=== PATIENT | female | born 1965 | race Asian ===

== ENCOUNTER 2016-11-19 08:37 | Day surgery (SDC) | payer OTHER ==
[~2016-11-19] VITALS: Ht 154.9 cm; Wt 61.5 kg
[~2016-11-19 08:37] MED LIST: DXPN25C PO; FLUT16SP NS; GLUC100016 PO; MULT-1018 PO; NPR500T PO; OMEG-38 PO; Sodium Chloride LOK Flush 10 mL Syringe IV PRN; TRET15GE2 TP; fentaNYL-PF 50 mCg/mL 2 mL Inj IVPUSH PRN
[2016-11-19 09:19] VITALS: BP 135/85; PULSE 82; RESP 16; O2SAT 97
[2016-11-19] MEDS: 0.9% Sodium Chloride 1,000 ML IV PRN ×3 (09:26→09:57)
[2016-11-19 10:00] VITALS: BP 134/91; PULSE 82; RESP 12; O2SAT 96
[2016-11-19 10:10] VITALS: BP 135/73; PULSE 77; RESP 14; O2SAT 97
[2016-11-19 10:20] VITALS: BP 142/84; PULSE 82; RESP 14; O2SAT 97
[2016-11-19 10:30] VITALS: BP 142/86; PULSE 84; RESP 14; O2SAT 99
--- NOTE | 2016-11-19 10:46 | ENDO ---
[address] [address] ENDOSCOPY PROCEDURE PATIENT: LEVY PONCE : 1965 MR#: [id number] ADMIT: 11/19/2016 JOB ID: [id number] DATE: 11/19/2016 PROCEDURE: Colonoscopy. INDICATIONS: Screening. The patient's ASA classification is 1. Mallampati score was 1. MEDICATIONS: 1. Versed 3 mg. 2. Fentanyl 50 mcg. INSTRUMENT USED: PCF H 190 AL PREPARATION QUALITY: Was good. PROCEDURE DETAILS: After informed consent was obtained, the patient was brought into the GI suite, where she was placed on oxygen via nasal cannula and monitored with continuous pulse oximeter, telemetry and blood pressure monitoring. A time-out was performed. Then, she was placed in the left lateral decubitus position and medications were administered for sedation. A digital rectal examination was performed and was unremarkable. The colonoscope was then inserted into the rectum and advanced under direct visualization to the cecum, which was identified by the presence of the ileocecal valve and appendiceal orifice. Once the cecum was reached, the colonoscope was withdrawn back into the rectum as the mucosa and lumen were examined. In the rectum, retroflexion was performed. Following retroflexion, remaining air in the rectum was suctioned, and the procedure was completed. FINDINGS: 1. Mild melanosis coli was noted throughout the entire colon. 2. Otherwise normal examination from rectum to cecum. IMPRESSION: Normal colonoscopy. RECOMMENDATIONS: Repeat colonoscopy in 10 years, sooner if symptoms should dictate. COMPLICATIONS: None. ESTIMATED BLOOD LOSS: 0.
== END 2016-11-19 23:59 | disposition home or self-care (01) ==
LOC: END 08:37
PROVIDERS: ATTEND Internal Medicine Gastroenterology
DX: Z12.11 Encounter for screening for malignant neoplasm of colon (principal); K63.89 Other specified diseases of intestine; E78.2 Mixed hyperlipidemia
CPT/HCPCS: G0121; G0500; J2250; J3010; J7030